=== PATIENT | male | born 1990 | race Two or more races ===

== ENCOUNTER 2024-02-20 04:10 | Emergency (ER) | payer MEDICAID, SELFPAY ==
[2024-02-20 04:11] VITALS: BMI 20.5
[2024-02-20 04:25] VITALS: BP 136/91; PULSE 87; RESP 20; TEMP 36.7; O2SAT 99
--- NOTE | 2024-02-20 04:34 | XR_ITS ---
Examination: Fingers, left hand first digit 3 views Technique: AP, oblique, lateral views left hand first digit 3 views. Exam date and time: February 20, 2024 0442 hrs. Indications: Nonhealing wound distal first digit one week Findings: Soft tissue swelling about the first digit No fracture No foreign body No cortical bone destruction Impression: No sonya cortical bone obstruction
--- NOTE | 2024-02-20 04:37 | PD.EDHAND ---
Upper Extremity Injury RME/HPI General Chief Complaint: Hand/Wrist Problems Stated Complaint: LEFT THUMB PAIN Time Seen by Provider: 02/20/24 04:33 Arrival date/time: 02/20/24 04:10 34M with history of asthma presents to ED with L thumb pain after fall/blister from 1 week ago. Limitations: no limitations Related Data Previous Rx's ?Medication ?Instructions ?Recorded tramadol 37.5 mg-acetaminophen 325 1 tab PO TID PRN pain #20 tabs 08/27/ mg tablet (Ultracet) hydrocortisone 2.5 % topical cream 1 applic topical BID PRN rash #30 09/16/23 grams clindamycin HCl 300 mg capsule 600 mg (2 x 300 mg) PO BID 10 days 02/20/24 #40 caps Allergies Allergy/AdvReac Type Severity Reaction Status Date / Time Iodinated Contrast Media Allergy Severe ITCHY AND Verified 02/20/24 04:13 [Iodinated Contrast- Oral BLURRY and IV Dye] VISION Review of Systems Review of Systems Systems Reviewed: All systems reviewed, normal except as documented Constitutional Constitutional: Reports system reviewed and no additional complaints, except as documented, Denies fever(s) and Denies headache(s) ENT Ears, Nose, Mouth, and Throat: Denies disequilibrium and Denies headache(s) Cardiovascular Cardiovascular: Reports system reviewed and no additional complaints, except as documented, Denies chest pain and Denies dyspnea Respiratory Respiratory: Reports system reviewed and no additional complaints, except as documented, Denies cough and Denies dyspnea Gastrointestinal Gastrointestinal: Reports system reviewed and no additional complaints, except as documented, Denies abdominal pain, Denies nausea and Denies vomiting Musculoskeletal Musculoskeletal: Reports as per HPI, Reports arthralgias and Reports joint swelling Neurologic Neurologic: Reports system reviewed and no additional complaints, except as documented, Denies confusion, Denies disequilibrium and Denies headache(s) Psychiatric Psychiatric: Denies confusion Past Medical History Past Medical History CARDIAC: Negative Congestive Heart Failure RESPIRATORY: Positive Asthma; Negative Chronic Obstructive Pulmonary Disease (COPD) GENITOURINARY: Negative Renal Disease ENDOCRINE: Negative Diabetes Mellitus Type 1 or Diabetes Mellitus Type 2 Social History SMOKING STATUS: Never smoker ED Exam General Limitations: Present no limitations General appearance: Present alert and in no apparent distress Head Head exam: Present atraumatic Eye Eye exam: Present normal appearance, PERRL and EOMI ENT ENT exam: Present normal exam, normal oropharynx and mucous membranes moist Neck Neck exam: Present normal inspection, full ROM and trachea midline Chest Chest inspection: Present normal inspection and symmetric chest wall rise Respiratory Respiratory exam: Present normal lung sounds bilaterally Cardiovascular Cardiovascular exam: Present regular rate, normal rhythm and normal heart sounds Abdominal Exam Abdominal exam: Present soft and normal bowel sounds Extremities Exam Extremities exam: Present full ROM Expanded Upper Extremity Exam Hand exam: Present full ROM (R thumb), tenderness, swelling and erythema Back Exam Back exam: Present normal inspection and full ROM Neurological Exam Neurological exam: Present alert, oriented X3 and CN II-XII intact Psychiatric Psychiatric exam: Present normal affect and normal mood Skin Skin exam: Present warm, dry, intact and normal color Course Quality Measures none Orders Category Date Time Status XR finger LT min 2V Stat Exams 02/20/24 04:34 Taken Clindamycin Vial [Cleocin vial] Med 02/20/24 05:10 Discontinued 600 mg IM X1 ONE Naproxen [Naprosyn] Med 02/20/24 04:40 Discontinued 500 mg PO X1 ONE Vital Signs Vital signs: Vital Signs Temperature 98.0 F 02/20/24 04:25 Pulse Rate 87 02/20/24 04:25 Respiratory Rate 20 02/20/24 04:25 Blood Pressure 136/91 H 02/20/24 04:25 Pulse Oximetry (%) 99 02/20/24 04:25 Oxygen Delivery Method Room Air 02/20/24 04:25 O2 at 99% on RA and WNLs Extremity Injury MDM Narrative MDM Narrative:: 34M with history of asthma presents to ED with L thumb pain after fall/blister from 1 week ago. Physical exam reveals L thumb tenderness, swelling and redness. No anatomical snuff box tenderness. ROM mostly intact. Patient is afebrile, calm, and alert. Wet XR read reveals no fx pending official report. Given ABX for cellulitis. Patient data External records reviewed:: [facility] previous records Clinical information provided by:: patient Social determinants that could affect healthcare access:: none Patient has the following chronic illnesses:: asthma How is presenting disease/condition affected by chronic disease/condition?: uneffected by Evaluation data The following diagnostics were reviewed and interpreted by me:: radiology exam(s) Lab and/or radiology exams considered but not ordered:: ordered Interpretation Summary: above Medications / Prescriptions Medications or Prescriptions considered but not ordered:: not ordered Medication administrations:: Medication Administration History Discontinued Medications Clindamycin Phosphate (Clindamycin Phos Inj 150 Mg/Ml Vial 6 Ml) 600 mg IM X1 ONE Stop: 02/20/24 05:11 Last Admin: 02/20/24 05:15 Dose: 600 mg Documented By: PORTIA Naproxen (Naproxen 250 Mg Tablet) 500 mg PO X1 ONE Stop: 02/20/24 04:41 Last Admin: 02/20/24 04:49 Dose: 500 mg Documented By: PORTIA n/a Consultations Consultation(s) initiated? (list below): No Diagnosis Upper Extremity Injury Differential Diagnosis: sprain and strain of wrist, fracture of wrist, finger sprain, dislocation of finger, Colles' fracture, fracture of hand and other (cellulitis) Most likely diagnosis given after review of the tests above:: cellulitis Admission Indicated Admission indicated?: not indicated Admission Request Was there a request for admission?: No Disposition Plan Disposition Plan: Discharge Discharge Attestation Discharge Attestation: The patient and all family members were given an opportunity to ask questions and understood the discharge instructions. Discharge instructions specifically effects, indications for sooner follow up or return to the emergency department, and the expected course of current diagnosis. Patient condition: Stable Discharge Plan Plan Patient Disposition: HOME (Self Care) Disposition Comment: Stable Prescriptions/Referrals Prescriptions/Med Rec: New clindamycin HCl 300 mg capsule 600 mg PO BID 10 Days Qty: 40 0RF No Action tramadol-acetaminophen [Ultracet] 37.5-325 mg tablet 1 tab PO TID PRN (Reason: pain) Qty: 20 0RF hydrocortisone 2.5 % cream 1 applic topical BID PRN (Reason: rash) Qty: 30 0RF Problem List Clinical Impression: Cellulitis Patient/Caregiver Discharge Instructions Education Materials: ED Cellulitis Additional Instructions: Please follow-up with PCP within 24-48 hours and return immediately if symptoms worsen. Print Language: Occitan Stand Alone Forms: Patient Portal Info Letter FERNANDO/GUNJAN Supervising Physician FERNANDO/GUNJAN Supervising Physician: Dr. Queen
[2024-02-20] MEDS: NAPROXEN 250 MG TABLET 500 MG PO (04:49)
[2024-02-20] MEDS: CLINDAMYCIN PHOS INJ 150 MG/ML VIAL 6 ML 600 MG IM (05:15)
== END 2024-02-20 05:19 | disposition home or self-care (01) ==
LOC: SERX 06:26
PROVIDERS: Emergency Provider Emergency Medicine; PCP Family Medicine
DX: L03.012 Cellulitis of left finger (principal)
CPT/HCPCS: 73140; 99283; J0736; A9270

== ENCOUNTER 2024-04-20 06:12 | Emergency (ER) | payer MEDICAID, SELFPAY ==
[2024-04-20 06:17] VITALS: PULSE 96; RESP 16; O2SAT 97; BMI 17.9
[2024-04-20 06:22] VITALS: BP 111/70; PULSE 108; RESP 18; TEMP 36.9; O2SAT 96
--- NOTE | 2024-04-20 06:27 | XR_ITS ---
Examination: PA lateral chest 2 views Technique: Upright PA lateral chest 2 views Exam date and time: April 20, 2024 0703 hrs. Indications: Chest pain coughing beginning 4 days ago. Findings: Significant bibasilar pneumonia Mild pectus deformity Normal heart size Moderate hyperexpansion Impression: Significant bibasilar pneumonia
[2024-04-20 07:47] LABS: Respiratory Syncytial Virus Ag Negative (Negative)
--- NOTE | 2024-04-20 08:05 | EDNOTE_ITS ---
Upper Respiratory Inf. RME/HPI General Chief Complaint: Flu Like Symptoms Stated Complaint: COUGH Time Seen by Provider: 04/20/24 06:20 Arrival date/time: 04/20/24 06:12 34-year-old male presents emergency department today complains of cough, congestion, fever, body aches patient reports positive contacts Limitations: no limitations Related Data Previous Rx's ?Medication ?Instructions ?Recorded tramadol 37.5 mg-acetaminophen 325 1 tab PO TID PRN pain #20 tabs 08/27/ mg tablet (Ultracet) hydrocortisone 2.5 % topical cream 1 applic topical BID PRN rash #30 09/16/23 grams azithromycin 500 mg tablet See Rx Instructions PO .COMPLEX #6 04/20/24 tabs benzonatate 100 mg capsule 100 mg PO TID #14 caps 04/20/24 ibuprofen 600 mg tablet 600 mg PO Q6H #30 tabs 04/20/24 Allergies Allergy/AdvReac Type Severity Reaction Status Date / Time Iodinated Contrast Media Allergy Severe ITCHY AND Verified 02/20/24 04:13 [Iodinated Contrast- Oral BLURRY and IV Dye] VISION Review of Systems Review of Systems Systems Reviewed: All systems reviewed, normal except as documented Constitutional Constitutional: Reports system reviewed and no additional complaints, except as documented, Denies fever(s) and Denies headache(s) Eyes Eyes: Reports system reviewed and no additional complaints, except as documented and Denies blurry vision ENT Ears, Nose, Mouth, and Throat: Reports system reviewed and no additional complaints, except as documented, Denies headache(s), Denies nasal congestion and Denies nasal discharge Cardiovascular Cardiovascular: Reports system reviewed and no additional complaints, except as documented, Denies chest pain and Denies dyspnea Respiratory Respiratory: Reports system reviewed and no additional complaints, except as documented, Denies chest congestion, Denies cough and Denies dyspnea Gastrointestinal Gastrointestinal: Reports system reviewed and no additional complaints, except as documented and Denies abdominal pain Integumentary/Breasts Skin/Breast: Reports system reviewed and no additional complaints, except as documented and Denies rash Neurologic Neurologic: Reports system reviewed and no additional complaints, except as documented, Reports as per HPI and Denies headache(s) Past Medical History Past Medical History NEUROLOGIC: Negative Neurological Disorders CARDIAC: Negative Cardiac Disorders ED Exam General Limitations: Present no limitations General appearance: Present alert and in no apparent distress Head Head exam: Present atraumatic, normocephalic and normal inspection Eye Eye exam: Present normal appearance, PERRL and EOMI; Absent conjunctival injection ENT ENT exam: Present normal exam, normal oropharynx and mucous membranes moist Neck Neck exam: Present normal inspection, full ROM and trachea midline Chest Chest inspection: Present normal inspection and symmetric chest wall rise Respiratory Respiratory exam: Present normal lung sounds bilaterally; Absent respiratory distress, wheezes, stridor or accessory muscle use Cardiovascular Cardiovascular exam: Present regular rate, normal rhythm and normal heart sounds Abdominal Exam Abdominal exam: Present soft and normal bowel sounds; Absent distention, tenderness, guarding, rebound or rigidity Extremities Exam Extremities exam: Present normal inspection and full ROM Back Exam Back exam: Present normal inspection and full ROM Neurological Exam Neurological exam: Present alert, oriented X3, CN II-XII intact, normal gait and reflexes normal; Absent motor sensory deficit Psychiatric Psychiatric exam: Present normal affect and normal mood Skin Skin exam: Present warm, dry, intact and normal color; Absent rash Course Quality Measures none Orders Category Date Time Status Bedside COVID-19 Antigen Test NOW Care 04/20/24 07:13 Completed Bedside Influenza A&B Antigen Test NOW Care 04/20/24 06:27 Completed XR chest 2V Stat Exams 04/20/24 06:27 Completed RSV [Respiratory Syncytial Virus Ag] Stat Lab 04/20/24 07:15 Completed Lidocaine 1% 20 ml [Xylocaine 1% 20 ML] Med 04/20/24 08:05 Discontinued 2.1 ml INFL X1 ONE cefTRIAXone [Rocephin] Med 04/20/24 08:05 Discontinued 1,000 mg IM X1 ONE Vital Signs Vital signs: Vital Signs Temperature 98.5 F 04/20/24 06:22 Pulse Rate 108 H 04/20/24 06:22 Respiratory Rate 18 04/20/24 06:22 Blood Pressure 111/70 04/20/24 06:22 Pulse Oximetry (%) 96 04/20/24 06:22 Oxygen Delivery Method Room Air 04/20/24 06:22 O2 saturation 96% on room air within normal limits Upper Respiratory Infection MDM Narrative MDM Narrative:: 34-year-old male presents emergency department today complains of cough, congestion, fever, body aches patient reports positive contacts On exam patient well-appearing patient does not appear ill or toxic and in no acute distress Chest x-ray obtained patient for flu COVID and RSV Flu COVID RSV all negative Chest x-ray consistent with pneumonia Patient given Rocephin here discharged with antibiotics On exam patient has no tachypnea no dyspnea no increased work of breathing Patient discharged home in no distress to follow-up with primary care doctor in the next 24 to 48 hours and for any worsening symptoms to return to the ER immediately Patient data External records reviewed:: [facility] previous records Clinical information provided by:: patient Social determinants that could affect healthcare access:: none Patient has the following chronic illnesses:: None How is presenting disease/condition affected by chronic disease/condition?: no chronic disease Evaluation data The following diagnostics were reviewed and interpreted by me:: lab results and radiology exam(s) Lab and/or radiology exams considered but not ordered:: Labs radiology obtained Interpretation Summary: Reviewed by me Medications / Prescriptions Medications or Prescriptions considered but not ordered:: Given Medication administrations:: Medication Administration History Discontinued Medications Ceftriaxone Sodium (Ceftriaxone Sod Inj 1,000 Mg Vial) 1,000 mg IM X1 ONE Stop: 04/20/24 08:06 Last Admin: 04/20/24 08:23 Dose: 1,000 mg Documented By: TOMASZ Lidocaine HCl (Lidocaine Hcl 1% 20 Ml Vial) 2.1 ml INFL X1 ONE Stop: 04/20/24 08:06 Last Admin: 04/20/24 08:23 Dose: 2.1 ml Documented By: TOMASZ Given Consultations Consultation(s) initiated? (list below): No Diagnosis Upper Respiratory Differential Diagnosis: upper respiratory infection, otitis media, sinusitis, viral infection, pharyngitis and other Most likely diagnosis given after review of the tests above:: Pneumonia Admission Indicated Admission indicated?: not indicated Admission Request Was there a request for admission?: No Disposition Plan Disposition Plan: Discharge Discharge Attestation Discharge Attestation: The patient and all family members were given an opportunity to ask questions and understood the discharge instructions. Discharge instructions specifically effects, indications for sooner follow up or return to the emergency department, and the expected course of current diagnosis. Patient condition: Stable Discharge Plan Plan Patient Disposition: HOME (Self Care) Disposition Comment: Stable Prescriptions/Referrals Prescriptions/Med Rec: New benzonatate 100 mg capsule 100 mg PO TID Qty: 14 0RF ibuprofen 600 mg tablet 600 mg PO Q6H Qty: 30 0RF azithromycin 500 mg tablet See Rx Instructions .ROUTE .COMPLEX Qty: 6 0RF Rx Instructions: take 500 mg today (day 1), then 250 mg for 4 days (days 2-5) No Action tramadol-acetaminophen [Ultracet] 37.5-325 mg tablet 1 tab PO TID PRN (Reason: pain) Qty: 20 0RF hydrocortisone 2.5 % cream 1 applic topical BID PRN (Reason: rash) Qty: 30 0RF Referrals: Armando Nelson MD [Primary Care Provider] - 04/21/24 Problem List Clinical Impression: Pneumonia Patient/Caregiver Discharge Instructions Education Materials: ED Pneumonia (Adult) Additional Instructions: Please follow up with your primary care doctor in the next 24-48hrs for any worsening symptoms return here immediately Print Language: Icelandic Stand Alone Forms: Luisana Award Info., Work/School Release, Patient Portal Info Letter PA/GUNJAN Supervising Physician FERNANDO/GUNJAN Supervising Physician: Dr wesley
[2024-04-20] MEDS: LIDOCAINE HCL 1% 20 ML VIAL 2.1 ML INFL (08:23)
[2024-04-20] MEDS: cefTRIAXone SOD INJ 1,000 MG VIAL 1000 MG IM (08:23)
[2024-04-20 08:29] VITALS: BP 110/71; PULSE 99; RESP 19; TEMP 36.7; O2SAT 98
== END 2024-04-20 08:30 | disposition home or self-care (01) ==
PROVIDERS: Nurse Practitioner Primary Care; Emergency Provider Emergency Medicine; PCP Family Medicine
DX: J18.9 Pneumonia, unspecified organism (principal)
CPT/HCPCS: 71046; 87400; 87634; 87811; 96372; 99283; J0696; J3490